=== PATIENT | female | born 1935 | race Caucasian/White ===

== ENCOUNTER 2016-09-14 00:32 | Inpatient (IN) | payer MEDICARE, MEDICAID ==
[~2016-09-14] VITALS: Ht 165.1 cm; Wt 77.1 kg
[2016-09-14] MEDS ORDERED: ASPI-605 PO (00:55)
[2016-09-14] MEDS ORDERED: CA CARBONATE PO (00:59)
[2016-09-14] MEDS ORDERED: PANTOPRAZOLE SODIUM 40 MG VIAL IV ONE (01:00)
[2016-09-14] MEDS ORDERED: ONDANSETRON 4 MG/2 ML VIAL IV ONE (01:00)
[2016-09-14] MEDS ORDERED: MORPHINE SULFATE 2 MG/1 ML DISP.SYRIN IV ONE (01:00)
[2016-09-14] MEDS ORDERED: IV NORMAL SALINE 500 ML BAG IV ONE (01:00)
[2016-09-14] MEDS ORDERED: ESCI5TAB PO (01:03)
[2016-09-14] MEDS ORDERED: FERR325T28 PO (01:05)
[2016-09-14] MEDS ORDERED: GABA-532 PO (01:05)
[2016-09-14] MEDS ORDERED: [UNRECOGNIZED DRUG - CODE] PO (01:11)
[2016-09-14] MEDS ORDERED: MULT-70 PO (01:12)
[2016-09-14] MEDS ORDERED: OMEP20CA10 PO (01:14)
[2016-09-14 01:17] LABS: BASOPHILS # (AUTO) 0.2 K/uL (0.0-0.2); BASOPHILS % (AUTO) 0.6 % (0.0-2.0); HEMATOCRIT 33.6 % (37.0-47.0); HEMOGLOBIN 10.9 g/dL (12.0-16.0); LYMPHOCYTES # (AUTO) 1.3 K/uL (0.8-4.8); MEAN CORPUSCULAR HGB CONC 33 g/dL (32.0-37.0); MEAN CORPUSCULAR VOLUME 82.7 fL (81.0-99.0); MONOCYTES # (AUTO) 0.7 K/uL (0.1-1.30); MONOCYTES % (AUTO) 2.6 % (0.0-11.0); NEUTROPHILS # (AUTO) 24.2 K/uL (1.8-8.9); NEUTROPHILS % (AUTO) 91.8 % (38.5-71.5); PLATELET COUNT (AUTO) 247 K/uL (150-450); RED BLOOD CELL COUNT(AUTO) 4.06 MIL/uL (4.20-5.40); RED CELL DISTRIBUTION WIDTH 13.9 % (11.5-14.5); WHITE BLOOD COUNT (AUTO) 26.4 K/uL (4.0-11.2)
[2016-09-14] MEDS ORDERED: QUET25TA PO (01:19)
[2016-09-14] MEDS ORDERED: TRAZ-144 PO (01:20)
[2016-09-14] MEDS ORDERED: CHOL200025 PO (01:21)
[2016-09-14] MEDS ORDERED: FLUTICASONE 50MCG EA NOSTRIL (01:28)
[2016-09-14] MEDS ORDERED: HYDR-3326 PO (01:29)
[2016-09-14] MEDS ORDERED: PIPERACILLIN SODIUM/TAZOBACTAM 3.375 G in IV DEXTROSE 5% 50 ML IV ONE (01:30)
[2016-09-14 01:31] LABS: TROPONIN I < 0.017 ng/mL (0.00-0.056)
[2016-09-14] MEDS ORDERED: MAPAP PO (01:33)
[2016-09-14] MEDS ORDERED: LOPE2TAB25 PO (01:35)
[2016-09-14 01:36] LABS: CALCIUM 8.9 mg/dL (8.5-10.1); CREATININE 0.8 mg/dL (0.6-1.3); POTASSIUM 3.8 mmol/L (3.5-5.1)
[2016-09-14] MEDS ORDERED: PANTOPRAZOLE SODIUM 40 MG VIAL ONE (01:37)
[2016-09-14] MEDS ORDERED: ANTACID PO (01:37)
[2016-09-14] MEDS ORDERED: ONDANSETRON 4 MG/2 ML VIAL ONE (01:37)
[2016-09-14] MEDS ORDERED: MORPHINE SULFATE 2 MG/1 ML DISP.SYRIN ONE (01:38)
[2016-09-14] MEDS ORDERED: HYDR-548 PO (01:40)
[2016-09-14] MEDS ORDERED: LORA1TAB PO (01:41)
[2016-09-14 01:43] LABS: ALBUMIN 3.2 g/dL (3.4-5.0); BILIRUBIN,DIRECT 0.1 mg/dL (0.0-0.2); BILIRUBIN,TOTAL 0.4 mg/dL (0.2-1.0); TOTAL PROTEIN, SERUM 7.1 g/dL (6.4-8.2)
[2016-09-14] MEDS ORDERED: GUAI118S20 PO (01:46)
[2016-09-14] MEDS ORDERED: TEMA30CA5 PO (01:49)
[2016-09-14] MEDS ORDERED: PIPERACILLIN/TAZOBACTAM/D5W 50 ML IV ONE (01:51)
[2016-09-14] MEDS ORDERED: TRAM50TA2 PO (01:51)
[2016-09-14] MEDS ORDERED: LACTULOSE PO (01:53)
[2016-09-14] MEDS ORDERED: DIPHENOXYLATE PO (01:55)
[2016-09-14] MEDS ORDERED: ATROPINE PO (01:55)
--- NOTE | 2016-09-14 02:16 | NUR ---
Dina fajardo in EDM - 09/14/16 at 0217 by DMITRY Patient discharged to home in stable conditon. Written and verbal after care instructions given. Patient verbalizes understanding of instructions. Ambulated from ER with stable gait. All belongings with patient.
--- NOTE | 2016-09-14 03:28 | NUR ---
Called [facility] for a MD to MD consult.
[2016-09-14] MEDS ORDERED: IV NS 1000 ML 1,000 ML IV ONE ×2 (03:30→05:00)
--- NOTE | 2016-09-14 03:45 | NUR ---
Adriana Johnson Cell phone :
[2016-09-14] MEDS ORDERED: METRONIDAZOLE 500 MG TABLET ONE (03:56)
[2016-09-14] MEDS ORDERED: METRONIDAZOLE 500 MG TABLET PO ONE (04:00)
--- NOTE | 2016-09-14 04:03 | NUR ---
Pt. admitted to Telemetry , under care of Dr. Berger, Dx: Diverticulitis. Belongs List completed.
[2016-09-14 04:20] VITALS: BP 108/45
--- NOTE | 2016-09-14 04:20 | NUR ---
PT WAS BROUGHT IN TO FLOOR VIA WHEELCHAIR. ADMITTED TO TELE UNDER DR. PEREZ. DX: DIVERTICULITIS. INITIATE ADMISSION ASSESSMENTS. WILL CALL FOR ORDERS. BELONGING LISTS REVIEWED.
[2016-09-14] MEDS ORDERED: ACETAMINOPHEN 325 MG TABLET PO PRN (05:00)
[2016-09-14] MEDS: LEVOFLOXACIN 500 MG/D5W 500 MG in PREMIXED 1 EACH IV SCH (05:00)
[2016-09-14] MEDS ORDERED: ENOXAPARIN SODIUM 30 MG/0.3 ML DISP.SYRIN SQ SCH (05:00)
[2016-09-14] MEDS ORDERED: Z GUARD REMEDY PASTE 57 GM TUBE TOP PRN (05:00)
[2016-09-14] MEDS ORDERED: MAGNESIUM HYDROXIDE 30 ML LIQUID UDC PO PRN (05:00)
[2016-09-14] MEDS ORDERED: METRONIDAZOLE 500 MG/NS 100ML 100 ML IV ONE (06:08)
[2016-09-14] MEDS ORDERED: LEVOFLOXACIN 500 MG/D5W 100 ML ONE ×2 (06:08→06:12)
[2016-09-14] MEDS ORDERED: PANTOPRAZOLE SODIUM 40 MG TABLET.DR PO SCH (07:00)
--- NOTE | 2016-09-14 08:59 | NUR ---
STOOL SAMPLE SENT TO LAB
[2016-09-14] MEDS: PANTOPRAZOLE SODIUM 40 MG VIAL IV SCH (09:58)
[2016-09-14 10:19] LABS: BASOPHILS % (AUTO) 0.2 % (0.0-2.0); EOSINOPHILS % (AUTO) 0.2 % (0.0-7.0); HEMATOCRIT 31.5 % (37.0-47.0); HEMOGLOBIN 10.5 g/dL (12.0-16.0); LYMPHOCYTES # (AUTO) 1.8 K/uL (0.8-4.8); LYMPHOCYTES % (AUTO) 7.3 % (20.5-51.5); MEAN CORPUSCULAR HEMOGLOBIN 27.5 uug (27.0-31.0); MEAN CORPUSCULAR HGB CONC 33 g/dL (32.0-37.0); MEAN CORPUSCULAR VOLUME 82.3 fL (81.0-99.0); MONOCYTES # (AUTO) 1.3 K/uL (0.1-1.30); MONOCYTES % (AUTO) 5.4 % (0.0-11.0); NEUTROPHILS % (AUTO) 86.9 % (38.5-71.5); PLATELET COUNT (AUTO) 226 K/uL (150-450); RED BLOOD CELL COUNT(AUTO) 3.83 MIL/uL (4.20-5.40); RED CELL DISTRIBUTION WIDTH 13.7 % (11.5-14.5); WHITE BLOOD COUNT (AUTO) 24.1 K/uL (4.0-11.2)
[2016-09-14 10:55] LABS: ALBUMIN 2.8 g/dL (3.4-5.0); BILIRUBIN,TOTAL 0.4 mg/dL (0.2-1.0); CALCIUM 8.4 mg/dL (8.5-10.1); CREATININE 0.7 mg/dL (0.6-1.3); TOTAL PROTEIN, SERUM 6.7 g/dL (6.4-8.2)
[2016-09-14] MEDS: MORPHINE SULFATE 2 MG/1 ML DISP.SYRIN IV PRN ×3 (10:55→22:28)
[2016-09-14 11:14] LABS: BAND % (MANUAL) 19 % (0-10); LYMPHOCYTES % (MANUAL) 9 % (20-40); MONOCYTES % (MANUAL) 5 % (2-10); NEUTROPHILS % (MANUAL) 67 % (42-75)
[2016-09-14 11:15] LABS: PLATELET ESTIMATE ADEQUATE
[2016-09-14 11:32] VITALS: BP 105/47
--- NOTE | 2016-09-14 11:40 | NUR ---
PT TEMP 100.2, TYLENOL PO ORDERED, HOWEVER PT NPO AT THIS TIME. MATTIE YOUNG NP, AWAITING ORDERS. ICE PACKS APPLIED TO UNDER ARMS IN THE MEAN TIME
--- NOTE | 2016-09-14 11:47 | NUR ---
SPOKE WITH BRYANNA YOUNG ABOUT NEW ORDERS, WILL FOLLOW THROUGH
[2016-09-14 11:50] LABS: *OCCULT BLOOD STOOL POSITIVE (NEGATIVE)
[2016-09-14] MEDS: ACETAMINOPHEN 650 MG SUPP.RECT RC PRN ×2 (11:58→20:18)
[2016-09-14 12:52] LABS: PHOSPHOROUS 2.2 mg/dL (2.5-4.9)
[2016-09-14] MEDS: METRONIDAZOLE 500 MG/NS 100ML 500 MG in PREMIXED 1 EACH IV SCH ×2 (13:43→21:00)
[2016-09-14] MEDS ORDERED: POTASSIUM PHOSPHATE MM 7.5 MMOL in IV DEXTROSE 5% 100 ML IV ONE (14:15)
[2016-09-14 15:19] VITALS: BP 115/46
[2016-09-14 15:36] LABS: *BILIRUBIN,URIN NEGATIVE (NEGATIVE); *BLOOD, URINE 1+ (NEGATIVE); *CLARITY,URINE CLEAR (CLEAR); *COLOR,URINE YELLOW (YELLOW); *KETONES,URINE NEGATIVE (NEGATIVE); *PROTEIN,URINE 1+ (NEGATIVE); *UROBILINOGEN,URINE 0.2 E.U./dl (NORMAL); LEUKOCYTE ESTERASE ,URINE NEGATIVE (NEGATIVE); NITRITE, URINE NEGATIVE (NEGATIVE); PH,URINE 6.5 (5.0-8.0); UGLUCOSE NEGATIVE (NEGATIVE)
[2016-09-14 15:48] LABS: *CREATININE,URINE 95.7 mg/dL (30-125)
[2016-09-14 15:55] LABS: SQUAMOUS EPITHELIAL CELL,UR FEW /HPF (NONE SEEN)
[2016-09-14] MEDS: ONDANSETRON 4 MG/2 ML VIAL IV PRN (16:01)
--- NOTE | 2016-09-14 18:31 | NUR ---
PT RESTING IN BED, NO SIGNS OF ACUTE DISTRESS. REMAINED NPO THROUGH SHIFT AND NO TEMP AT THIS TIME. IV INTACT AND PATENT AND INFUSING WELL. ALL SAFETY AND COMFORT MEASURES MAINTAINED THROUGHOUT SHIFT, CALL LIGHT IN REACH
--- NOTE | 2016-09-14 19:15 | NUR ---
Received report from ENEDINA Mistry.
--- NOTE | 2016-09-14 19:45 | NUR ---
Seen patient, accompanied to restroom. Pt reported that her BM is getting better/more formed now.AOX3, very pleasant. Pt reported abdominal pain intermittently. Denies n/v. Pt is independent goes to restroom with minimal supervision. Still encourages to call nurse before goes to bathroom.
[2016-09-14 20:00] VITALS: BP 116/52
--- NOTE | 2016-09-14 20:00 | NUR ---
Pt c/o of headache and requested Tylenol suppository.Given as requested via rectal.
--- NOTE | 2016-09-14 21:00 | NUR ---
Pt was in extreme abdominal pain and requested for pain medicine. Her morphine was not due , given [place] 1 tab/po with sips of water, given as prescribed.Pain level reported was 10/10.
[2016-09-14] MEDS: HYDROCODONE/APAP 5-325MG TABLET PO PRN (21:10)
[2016-09-14] MEDS: ZOLPIDEM 5 MG TABLET PO PRN (22:29)
--- NOTE | 2016-09-14 23:00 | NUR ---
Pain reassessed and pt reported that it helped a little bit after taking [place], however requested for stronger pain medicine, so also she can sleep. On top of pain medicine, she requested for sleeping pills. Morphine given as requested 2mg/IVP. Accompanied again to restroom for urination. Continue on NS at 75mls/hr.
[2016-09-15] VITALS: BP 122/61
--- NOTE | 2016-09-15 01:00 | NUR ---
Pt resting comfortably, easily awakened due to IV pumps alarms, but was able to go back right away.Accompanied to restroom.Back to bed and made sure call lights within reach.
--- NOTE | 2016-09-15 02:30 | NUR ---
[place] was given for abdominal pain, pt stated 03/29. Morphine is not due, offerred po pain meds.
[2016-09-15] MEDS: HYDROCODONE/APAP 5-325MG TABLET PO PRN ×2 (02:42→10:59)
[2016-09-15] MEDS: MORPHINE SULFATE 2 MG/1 ML DISP.SYRIN IV PRN ×5 (03:45→21:27)
[2016-09-15 04:11] VITALS: BP 128/52
--- NOTE | 2016-09-15 05:00 | NUR ---
Hanged Levofloxacin IV abx to run at 100mls/hr.
[2016-09-15] MEDS: LEVOFLOXACIN 500 MG/D5W 500 MG in PREMIXED 1 EACH IV SCH (05:01)
[2016-09-15] MEDS: METRONIDAZOLE 500 MG/NS 100ML 500 MG in PREMIXED 1 EACH IV SCH ×3 (05:50→22:57)
--- NOTE | 2016-09-15 06:00 | NUR ---
Hanged Metronidazole IVPB rate of 200mls/hr. Pt urinated multiple times. NO diarrhea noted.
[2016-09-15 07:00] LABS: BASOPHILS % (AUTO) 0.2 % (0.0-2.0); EOSINOPHILS # (AUTO) 0.4 K/uL (0.0-0.7); EOSINOPHILS % (AUTO) 2.2 % (0.0-7.0); HEMATOCRIT 29.7 % (37.0-47.0); HEMOGLOBIN 9.5 g/dL (12.0-16.0); LYMPHOCYTES # (AUTO) 2.5 K/uL (0.8-4.8); LYMPHOCYTES % (AUTO) 14.8 % (20.5-51.5); MEAN CORPUSCULAR HEMOGLOBIN 26.9 uug (27.0-31.0); MEAN CORPUSCULAR HGB CONC 32 g/dL (32.0-37.0); MEAN CORPUSCULAR VOLUME 83.8 fL (81.0-99.0); MONOCYTES % (AUTO) 5.6 % (0.0-11.0); NEUTROPHILS # (AUTO) 13.1 K/uL (1.8-8.9); NEUTROPHILS % (AUTO) 77.2 % (38.5-71.5); PLATELET COUNT (AUTO) 212 K/uL (150-450); RED BLOOD CELL COUNT(AUTO) 3.54 MIL/uL (4.20-5.40); RED CELL DISTRIBUTION WIDTH 14.1 % (11.5-14.5)
--- NOTE | 2016-09-15 07:10 | NUR ---
Report to ENEDINA Mason. Rounds made, seen patient physically on her beds, sound asleep, breathing normally.
[2016-09-15 08:16] LABS: ALBUMIN 2.4 g/dL (3.4-5.0); BILIRUBIN,TOTAL 0.2 mg/dL (0.2-1.0); CREATININE 0.6 mg/dL (0.6-1.3); MAGNESIUM 1.9 mg/dL (1.8-2.4); PHOSPHOROUS 1.8 mg/dL (2.5-4.9); POTASSIUM 3.6 mmol/L (3.5-5.1); TOTAL PROTEIN, SERUM 5.9 g/dL (6.4-8.2)
[2016-09-15] MEDS: PANTOPRAZOLE SODIUM 40 MG VIAL IV SCH (08:48)
[2016-09-15] MEDS ORDERED: ENOXAPARIN SODIUM 30 MG/0.3 ML DISP.SYRIN SQ SCH (09:00)
[2016-09-15] MEDS: ACETAMINOPHEN 650 MG SUPP.RECT RC PRN (10:59)
[2016-09-15 11:30] VITALS: BP 136/56
[2016-09-15 11:48] LABS: BAND % (MANUAL) 6 % (0-10); EOSINOPHILS % (MANUAL) 2 % (0-8); LYMPHOCYTES % (MANUAL) 20 % (20-40); MONOCYTES % (MANUAL) 4 % (2-10); NEUTROPHILS % (MANUAL) 68 % (42-75)
[2016-09-15 11:49] LABS: HYPOCHROMASIA 1+; PLATELET ESTIMATE ADEQUATE
[2016-09-15 15:19] VITALS: BP 139/61
[2016-09-15] MEDS ORDERED: LORAZEPAM 1 MG TABLET PO PRN (16:30)
[2016-09-15] MEDS: GABAPENTIN 100 MG CAPSULE PO SCH (16:44)
[2016-09-15] MEDS ORDERED: SODIUM PHOSPHATE MM 15 MM in IV DEXTROSE 5% 250 ML IV ONE (17:00)
--- NOTE | 2016-09-15 19:30 | NUR ---
PATIENT ALERT, NO DISTRESS NOTED. ASSISTED WITH TOILETING NEEDS. CALL LIGHT WITHIN REACH, BED IN LOW POSITION. WILL CONTINUE TO MONITOR.
[2016-09-15 20:00] VITALS: BP 149/74
[2016-09-15] MEDS: ZOLPIDEM 5 MG TABLET PO PRN (23:21)
[2016-09-16] MEDS: MORPHINE SULFATE 2 MG/1 ML DISP.SYRIN IV PRN ×4 (01:58→22:09)
[2016-09-16] MEDS: ONDANSETRON 4 MG/2 ML VIAL IV PRN (03:06)
[2016-09-16 04:30] VITALS: BP 151/72
[2016-09-16] MEDS: LEVOFLOXACIN 500 MG/D5W 500 MG in PREMIXED 1 EACH IV SCH (05:26)
--- NOTE | 2016-09-16 06:00 | NUR ---
PATIENT SLEPT INTERMITTENTLY, NO DISRESS NOTED. PT C/O OF GENERALIZED PAIN. PAIN MEDS ADMINISTERED ORDERED. CALL LIGHT WITHIN REACH. WILL CONTINUE TO MONITOR.
[2016-09-16] MEDS: METRONIDAZOLE 500 MG/NS 100ML 500 MG in PREMIXED 1 EACH IV SCH ×3 (06:22→21:05)
[2016-09-16] MEDS: HYDROCODONE/APAP 5-325MG TABLET PO PRN ×2 (06:50→12:34)
[2016-09-16 07:29] LABS: CALCIUM 8.5 mg/dL (8.5-10.1); PHOSPHOROUS 2.7 mg/dL (2.5-4.9); POTASSIUM 3.4 mmol/L (3.5-5.1)
[2016-09-16 07:32] LABS: CREATININE 0.5 mg/dL (0.6-1.3)
[2016-09-16] MEDS: PANTOPRAZOLE SODIUM 40 MG VIAL IV SCH (07:51)
[2016-09-16] MEDS: GABAPENTIN 100 MG CAPSULE PO SCH ×3 (07:51→18:06)
[2016-09-16 11:19] VITALS: BP 143/74
[2016-09-16] MEDS ORDERED: POTASSIUM CHLORIDE 20 MEQ TAB.PRT.SR PO ONE (12:00)
[2016-09-16 15:42] VITALS: BP 136/67
[2016-09-16 19:00] VITALS: BP 152/70
--- NOTE | 2016-09-16 19:45 | NUR ---
PATIENT ALERT ORIENTED, ON PAIN MANAGEMENT, PAIN MEDS EFFECTIVE AT THIS TIME. NO SOB NO CHEST PAIN NOTED, ASSISTED TO TOILET FOR BLADDER ELIMINATIONS. NO DISTRESS.
[2016-09-17 04:00] VITALS: BP 143/69
[2016-09-17] MEDS: MORPHINE SULFATE 2 MG/1 ML DISP.SYRIN IV PRN ×3 (05:36→21:39)
[2016-09-17] MEDS: LEVOFLOXACIN 500 MG/D5W 500 MG in PREMIXED 1 EACH IV SCH (05:36)
--- NOTE | 2016-09-17 06:32 | NUR ---
PATIENT SLEEP INTERMITENTLY, ABDOMEN STILL BIG, NO BM YET ON THIS SHIFT, GIVEN MOM NOT EFFECTIVE, NO SOB, NO CHEST PAIN. CONT TO MONITOR.
[2016-09-17] MEDS: METRONIDAZOLE 500 MG/NS 100ML 500 MG in PREMIXED 1 EACH IV SCH ×3 (07:01→21:21)
[2016-09-17] MEDS: HYDROCODONE/APAP 5-325MG TABLET PO PRN (07:48)
[2016-09-17] MEDS: GABAPENTIN 100 MG CAPSULE PO SCH ×3 (07:48→16:21)
--- NOTE | 2016-09-17 07:50 | NUR ---
awake alert oriented, c/o abdominal pain- medicated with [place] po i tab as ordered PRN, denies of nausea/vomiting, kept NPO except meds, explained plan of care- verbalized understanding, call lite within reach.
[2016-09-17 08:11] LABS: BASOPHILS # (AUTO) 0.1 K/uL (0.0-0.2); EOSINOPHILS # (AUTO) 0.3 K/uL (0.0-0.7); EOSINOPHILS % (AUTO) 2.2 % (0.0-7.0); HEMATOCRIT 35.3 % (37.0-47.0); HEMOGLOBIN 11.2 g/dL (12.0-16.0); LYMPHOCYTES # (AUTO) 2.4 K/uL (0.8-4.8); LYMPHOCYTES % (AUTO) 19.9 % (20.5-51.5); MEAN CORPUSCULAR HEMOGLOBIN 26.3 uug (27.0-31.0); MEAN CORPUSCULAR HGB CONC 32 g/dL (32.0-37.0); MEAN CORPUSCULAR VOLUME 82.4 fL (81.0-99.0); MONOCYTES # (AUTO) 0.5 K/uL (0.1-1.30); MONOCYTES % (AUTO) 4.3 % (0.0-11.0); NEUTROPHILS # (AUTO) 8.7 K/uL (1.8-8.9); NEUTROPHILS % (AUTO) 72.6 % (38.5-71.5); PLATELET COUNT (AUTO) 287 K/uL (150-450); RED BLOOD CELL COUNT(AUTO) 4.28 MIL/uL (4.20-5.40); RED CELL DISTRIBUTION WIDTH 13.6 % (11.5-14.5)
[2016-09-17] MEDS: PANTOPRAZOLE SODIUM 40 MG VIAL IV SCH (08:26)
[2016-09-17 08:51] LABS: ALBUMIN 2.8 g/dL (3.4-5.0); BILIRUBIN,TOTAL 0.3 mg/dL (0.2-1.0); CALCIUM 8.4 mg/dL (8.5-10.1); CREATININE 0.6 mg/dL (0.6-1.3); MAGNESIUM 1.9 mg/dL (1.8-2.4); PHOSPHOROUS 2.5 mg/dL (2.5-4.9); POTASSIUM 3.6 mmol/L (3.5-5.1); TOTAL PROTEIN, SERUM 7.4 g/dL (6.4-8.2)
[2016-09-17] MEDS ORDERED: CHOLECALCIFEROL 2000 UNIT PO SCH (09:00)
[2016-09-17] MEDS ORDERED: GLUCOSAM PO SCH (09:00)
[2016-09-17] MEDS ORDERED: LACTULOSE 20 G/30 ML LIQUID UDC PO PRN (09:00)
[2016-09-17] MEDS ORDERED: MAPAP PO PRN (09:00)
[2016-09-17] MEDS ORDERED: Medication Not On Formulary EA (Loperamide Hcl (Loperamide) 2 MG) PO SCH (09:00)
[2016-09-17] MEDS ORDERED: CHONDROIT PO SCH (09:00)
[2016-09-17] MEDS ORDERED: TRAMADOL HCL 50 MG TABLET PO PRN (09:00)
[2016-09-17] MEDS ORDERED: LOPERAMIDE HCL 2 MG CAPSULE PO PRN (09:00)
[2016-09-17] MEDS ORDERED: LACTULOSE PO PRN (09:00)
[2016-09-17] MEDS ORDERED: Medication Not On Formulary EA (Escitalopram Oxalate (Lexapro) 5 MG) PO SCH (09:00)
[2016-09-17] MEDS ORDERED: TEMAZEPAM 30 MG CAPSULE PO PRN (09:00)
[2016-09-17] MEDS ORDERED: ACETAMINOPHEN 325 MG TABLET PO PRN (09:00)
[2016-09-17] MEDS ORDERED: CALCIUM CARBONATE PO SCH (09:00)
[2016-09-17] MEDS ORDERED: Medication Not On Formulary EA (Multivitamins (Multivitamin) 1 EACH) PO SCH (09:00)
[2016-09-17] MEDS ORDERED: HYDROCODONE/APAP 5-325MG TABLET PO PRN (09:00)
[2016-09-17] MEDS ORDERED: [UNRECOGNIZED DRUG - OTHER] PO SCH (09:00)
[2016-09-17] MEDS ORDERED: Medication Not On Formulary EA (Omeprazole 20 MG) PO SCH (09:00)
[2016-09-17] MEDS ORDERED: VIT D3 PO SCH (09:00)
[2016-09-17] MEDS ORDERED: MSM PO SCH (09:00)
[2016-09-17] MEDS ORDERED: DIPHENOXYLATE HCL/ATROP SULF TABLET PO PRN (09:00)
[2016-09-17] MEDS ORDERED: ANTACID PO PRN (09:00)
[2016-09-17] MEDS ORDERED: DIPHENOXYLATE PO PRN (09:00)
[2016-09-17] MEDS ORDERED: ATROPINE PO PRN (09:00)
--- NOTE | 2016-09-17 09:00 | NUR ---
Dr Hernandez here-with orderes- to start regular diet- pt informed
[2016-09-17] MEDS: ASPIRIN EC 81 MG TABLET.DR PO SCH (09:53)
[2016-09-17] MEDS: ESCITALOPRAM OXALATE 10 MG TABLET PO SCH (09:53)
[2016-09-17] MEDS: MULTIVITAMINS,THERAPEUTIC TABLET PO SCH (09:54)
[2016-09-17] MEDS: CHOLECALCIFEROL 1,000 UNIT TABLET PO SCH (09:55)
[2016-09-17] MEDS: FERROUS SULFATE 325 MG TABEC PO SCH (09:55)
[2016-09-17] MEDS: CALCIUM CARBONATE 500 MG TAB.CHEW PO SCH ×2 (09:55→21:12)
[2016-09-17] MEDS ORDERED: BENZOCAINE/MENTH/CETYLPYRD LOZENGE MM PRN (10:00)
--- NOTE | 2016-09-17 10:00 | NUR ---
tolerated diet fairly, no nausea, ambulates to BR with help- no BM, voiding qs
[2016-09-17 11:26] VITALS: BP 132/67
--- NOTE | 2016-09-17 16:00 | NUR ---
Seen by Dr Zimmerman (GI) with orders- to have CT abdomen width contrast- pt informed and in agreement, Kept NPO for procedure
[2016-09-17 16:03] VITALS: BP 145/75
[2016-09-17] MEDS: HYDROCODONE/APAP 10-325 MG TABLET PO PRN (16:21)
--- NOTE | 2016-09-17 17:30 | NUR ---
oral contrast given by tech and pt took it as directed
[2016-09-17] MEDS ORDERED: BARIUM SULFATE 450 ML ORAL.SUSP ONE (17:36)
--- NOTE | 2016-09-17 18:35 | NUR ---
awaiting for test to be done, denies of nausea, resting in bed, no distress noted, all needs attended and met, call lite within reach
--- NOTE | 2016-09-17 19:10 | NUR ---
PATIENT IN BED RESTING, ON PAIN MANAGEMENT, NO SOB, NO CHEST PAIN NOTED, CALL LIGHT WITHIN REACH. CONT IV ABX FOR DIVERTICULITIS WITH NO ADVERSE SIDE EFFECTS. CONT TO MONITOR.
[2016-09-17] MEDS ORDERED: IOHEXOL 300MG/ML 100 ML INFUS..BTL ONE (20:19)
[2016-09-17] MEDS ORDERED: NORMAL SALINE FLUSH 10 ML DISP.SYRIN ONE (20:19)
[2016-09-17] MEDS ORDERED: IV NORMAL SALINE 250 ML IV ONE (20:20)
[2016-09-17] MEDS ORDERED: TRAZODONE 50 MG TABLET PO SCH (21:00)
[2016-09-17] MEDS ORDERED: QUETIAPINE FUMARATE 25 MG TABLET PO SCH (21:00)
[2016-09-17 21:27] VITALS: BP 145/65
[2016-09-18] MEDS: MORPHINE SULFATE 2 MG/1 ML DISP.SYRIN IV PRN ×2 (02:38→06:53)
--- NOTE | 2016-09-18 04:48 | NUR ---
PATIENT WAS GIVEN LACTULOSE DUE TO NO BM FOR FEW DAYS, PATIENT MOVED HER BOWEL FROM MEDIUM TO LARGE FORMED BM, ALSO WITH LARGE AMOUNT OF GAS CAME OUT.ABDOMEN IS SOFTER NOW, PATIENT EXPRESS GLADNESS, HELPS EASE ABDOMEN PAIN. CONT TO MONITOR.
[2016-09-18] MEDS: LEVOFLOXACIN 500 MG/D5W 500 MG in PREMIXED 1 EACH IV SCH (05:16)
[2016-09-18 05:39] VITALS: BP 106/50
[2016-09-18] MEDS: METRONIDAZOLE 500 MG/NS 100ML 500 MG in PREMIXED 1 EACH IV SCH ×2 (06:04→13:18)
[2016-09-18 06:52] LABS: BASOPHILS % (AUTO) 1.1 % (0.0-2.0); EOSINOPHILS % (AUTO) 2.1 % (0.0-7.0); HEMATOCRIT 34.5 % (37.0-47.0); LYMPHOCYTES % (AUTO) 20.3 % (20.5-51.5); MEAN CORPUSCULAR HEMOGLOBIN 26.6 uug (27.0-31.0); MEAN CORPUSCULAR HGB CONC 32 g/dL (32.0-37.0); MEAN CORPUSCULAR VOLUME 83.5 fL (81.0-99.0); MONOCYTES % (AUTO) 7.4 % (0.0-11.0); NEUTROPHILS % (AUTO) 69.1 % (38.5-71.5); PLATELET COUNT (AUTO) 286 K/uL (150-450); RED BLOOD CELL COUNT(AUTO) 4.14 MIL/uL (4.20-5.40); RED CELL DISTRIBUTION WIDTH 13.6 % (11.5-14.5); WHITE BLOOD COUNT (AUTO) 14.2 K/uL (4.0-11.2)
[2016-09-18 06:53] LABS: BASOPHILS # (AUTO) 0.2 K/uL (0.0-0.2); EOSINOPHILS # (AUTO) 0.3 K/uL (0.0-0.7); LYMPHOCYTES # (AUTO) 2.9 K/uL (0.8-4.8); MONOCYTES # (AUTO) 1.1 K/uL (0.1-1.30); NEUTROPHILS # (AUTO) 9.7 K/uL (1.8-8.9)
[2016-09-18] MEDS ORDERED: PANTOPRAZOLE SODIUM 40 MG TABLET.DR PO SCH (07:00)
[2016-09-18 07:28] LABS: ALBUMIN 2.8 g/dL (3.4-5.0); BILIRUBIN,TOTAL 0.3 mg/dL (0.2-1.0); CALCIUM 8.5 mg/dL (8.5-10.1); CREATININE 0.7 mg/dL (0.6-1.3); MAGNESIUM 1.9 mg/dL (1.8-2.4); PHOSPHOROUS 2.8 mg/dL (2.5-4.9); POTASSIUM 3.3 mmol/L (3.5-5.1); TOTAL PROTEIN, SERUM 6.7 g/dL (6.4-8.2)
--- NOTE | 2016-09-18 08:00 | NUR ---
awake alert and oriented, denies of nausea / vomiting, breakfast given- appetite poor, states had several BM on second shift supervisor, safety measures maintained, call lite within reach
[2016-09-18] MEDS: MULTIVITAMINS,THERAPEUTIC TABLET PO SCH (08:16)
[2016-09-18] MEDS: CALCIUM CARBONATE 500 MG TAB.CHEW PO SCH (08:16)
[2016-09-18] MEDS: GABAPENTIN 100 MG CAPSULE PO SCH ×2 (08:16→12:28)
[2016-09-18] MEDS: FERROUS SULFATE 325 MG TABEC PO SCH (08:16)
[2016-09-18] MEDS: ASPIRIN EC 81 MG TABLET.DR PO SCH (08:16)
[2016-09-18] MEDS: CHOLECALCIFEROL 1,000 UNIT TABLET PO SCH (08:16)
[2016-09-18] MEDS: ESCITALOPRAM OXALATE 10 MG TABLET PO SCH (08:16)
--- NOTE | 2016-09-18 09:30 | NUR ---
daughter here, ambulated in the hallway with walker- slight shortness of breath noted while ambulating- took sat- 97 %- felt fine after resting and sitting
--- NOTE | 2016-09-18 10:00 | NUR ---
c/o abdominal pain 12/27- medicated width Corinne 10/325 given as ordered PRN, up to BR and voiding qs- no BM this time
[2016-09-18] MEDS: HYDROCODONE/APAP 10-325 MG TABLET PO PRN (10:02)
[2016-09-18 10:24] LABS: BAND % (MANUAL) 4 % (0-10); BASOPHILS % (MANUAL) 2 % (0-2); LYMPHOCYTES % (MANUAL) 23 % (20-40); METAMYELOCYTES % 1 % (0-1); MONOCYTES % (MANUAL) 7 % (2-10); NEUTROPHILS % (MANUAL) 63 % (42-75)
[2016-09-18 10:25] LABS: PLATELET ESTIMATE ADEQUATE
[2016-09-18 11:44] VITALS: BP 105/56
[2016-09-18] MEDS ORDERED: METR500P3 IV (11:48)
[2016-09-18] MEDS ORDERED: LEVO500T15 PO (11:48)
--- NOTE | 2016-09-18 12:00 | NUR ---
Dr Hernandez here- to be d/cd to SNF- case management aware
[2016-09-18] MEDS ORDERED: POTASSIUM CHLORIDE 20 MEQ TAB.PRT.SR PO ONE (12:30)
--- NOTE | 2016-09-18 14:00 | NUR ---
Pt going to [facility] and pt in agreement
--- NOTE | 2016-09-18 14:30 | NUR ---
report given to Amanda at [facility], saline lock on the rigkht hand intact and patent- no swelling/redness noted on site-will leave it in for IV Flagyl at [facility], called Elizabeth ( daughter ) of p/up time by ambulance 1529
--- NOTE | 2016-09-18 15:25 | NUR ---
Discharge Plan; Once medically cleared patient will be discharged to [[facility] [address] , [place] [address]]. Angeli confirmed the patients admission. Patient will be transported via ambulance. Spoke with Elizabeth [daughter] and patient who are aware and agreeable with discharge plan.
--- NOTE | 2016-09-18 15:44 | NUR ---
ambulance here- report given- taken per stretcher in stable condition with all belongings
== END 2016-09-18 15:45 | DRG 872 ==
LOC: ER 00:38 → TELE 04:07 → MED 09-15 19:30
PROVIDERS: ADMIT Internal Medicine; ATTEND Internal Medicine
DX: A41.9 Sepsis, unspecified organism (principal); E87.1 Hypo-osmolality and hyponatremia; E44.0 Moderate protein-calorie malnutrition; K56.7 Ileus, unspecified; K57.32 Diverticulitis of large intestine without perforation or abscess without bleeding; I10 Essential (primary) hypertension; F03.90 Unspecified dementia, unspecified severity, without behavioral disturbance, psychotic disturbance, mood disturbance, and anxiety; D64.9 Anemia, unspecified; E83.39 Other disorders of phosphorus metabolism; E86.1 Hypovolemia; F32.9 Major depressive disorder, single episode, unspecified; G62.9 Polyneuropathy, unspecified; Z90.49 Acquired absence of other specified parts of digestive tract; Z90.710 Acquired absence of both cervix and uterus; K59.00 Constipation, unspecified; G89.4 Chronic pain syndrome; Z86.010 Personal history of colon polyps; Z68.28 Body mass index [BMI] 28.0-28.9, adult; E11.9 Type 2 diabetes mellitus without complications
CPT/HCPCS: 36415; 70030-TC; 71010; 74000; 82533; 83605; 83690; 83735; 84100; 84300; 84443; 85025; 85730; 86625; 87040; 87046; 87086; 87177; 89055; 93005; 97001; 97110; 97116; 97530; A4663; C9113; J1956; J2270; J2405; J2543; J3490; J7030; J7050; J7060; Q9951; Q9967

== ENCOUNTER 2017-07-12 14:26 | Inpatient (IN) | payer MEDICARE, MEDICAID ==
[~2017-07-12] VITALS: Ht 162.6 cm; Wt 64.4 kg
[~2017-07-12 14:26] MED LIST: ANTACID PO; ASPI-605 PO; ATROPINE PO; CA CARBONATE PO; CHOL200025 PO; DIPHENOXYLATE PO; ESCI5TAB PO; FERR325T28 PO; GABA-532 PO; HYDR-3326 PO; HYDR-548 PO; LACTULOSE PO; LEVO500T2 PO; LOPE2TAB25 PO; LORA1TAB PO; MAPAP PO; METR500P3 IV; MULT1TAB73 PO; OMEP20CA10 PO; QUET25TA PO; TEMA30CA5 PO; TRAM50TA2 PO; TRAZ-144 PO; [UNRECOGNIZED DRUG - CODE] PO
[2017-07-12 15:19] LABS: CARBON DIOXIDE 24 mmol/L (21-32); CHLORIDE 99 mmol/L (98-107); CREATININE 0.8 mg/dL (0.6-1.3); GLUCOSE 126 mg/dL (74-106); POTASSIUM 3.8 mmol/L (3.5-5.1); UREA NITROGEN, BLOOD 15 mg/dL (7-18)
[2017-07-12 15:20] LABS: BASOPHILS % (AUTO) 0.4 % (0.0-2.0); EOSINOPHILS % (AUTO) 0.3 % (0.0-7.0); HEMATOCRIT 36.8 % (31.2-41.9); HEMOGLOBIN 11.9 g/dL (10.9-14.3); LYMPHOCYTES # (AUTO) 2.1 K/uL (20.0-40.0); LYMPHOCYTES % (AUTO) 17.4 % (20.5-51.5); MEAN CORPUSCULAR HEMOGLOBIN 26.7 uug (24.7-32.8); MEAN CORPUSCULAR HGB CONC 32 g/dL (32.3-35.6); MEAN CORPUSCULAR VOLUME 82.6 fL (75.5-95.3); MONOCYTES # (AUTO) 0.7 K/uL (2.0-10.0); MONOCYTES % (AUTO) 5.5 % (0.0-11.0); NEUTROPHILS # (AUTO) 9.2 K/uL (1.8-8.9); NEUTROPHILS % (AUTO) 76.4 % (38.5-71.5); PLATELET COUNT (AUTO) 325 K/uL (179-408); RED BLOOD CELL COUNT(AUTO) 4.45 MIL/uL (3.63-4.92); WHITE BLOOD COUNT (AUTO) 12.1 K/uL (3.8-11.8)
[2017-07-12 15:25] LABS: ALANINE AMINOTRANSFERASE 23 U/L (14-59); ALKALINE PHOSPHATASE 79 U/L (50-136); ASPARTATE AMINOTRANSFERASE 29 U/L (15-37); BILIRUBIN,DIRECT 0.2 mg/dL (0.0-0.2); BILIRUBIN,TOTAL 0.5 mg/dL (0.2-1.0); TOTAL PROTEIN, SERUM 8.7 g/dL (6.4-8.2)
[2017-07-12 15:28] LABS: ETHANOL < 3 MG/DL (0-0)
[2017-07-12 15:28] LABS: *BLOOD, URINE 2+ (NEGATIVE); *CLARITY,URINE CLEAR (CLEAR); *COLOR,URINE YELLOW (YELLOW); *KETONES,URINE 3+ (NEGATIVE); *PROTEIN,URINE 1+ (NEGATIVE); *UROBILINOGEN,URINE 0.2 E.U./dl (NORMAL); LEUKOCYTE ESTERASE ,URINE 2+ (NEGATIVE); NITRITE, URINE NEGATIVE (NEGATIVE); PH,URINE 6.5 (5.0-8.0); UGLUCOSE NEGATIVE (NEGATIVE)
[2017-07-12 15:30] LABS: ACETAMINOPHEN < 2.0 ug/mL (10-30)
[2017-07-12 15:43] LABS: *AMPHETAMINE, URINE NEGATIVE (NEGATIVE); *BARBITURATE, URINE NEGATIVE (NEGATIVE); *BILIRUBIN,URIN 1+ (NEGATIVE); *CANNABINOID, URINE NEGATIVE (NEGATIVE); *COCCAINE, URINE NEGATIVE (NEGATIVE); *OPIATE, URINE POSITIVE (NEGATIVE); *PHENCYCLIDINE SCREEN,URINE NEGATIVE (NEGATIVE)
[2017-07-12 15:47] LABS: BACTERIA,URINE FEW /HPF (NONE SEEN); RBC,URINE 0-3 /HPF (0-3); SQUAMOUS EPITHELIAL CELL,UR FEW /HPF (NONE SEEN)
[2017-07-12] MEDS ORDERED: CALC500T3 PO (15:53)
[2017-07-12] MEDS ORDERED: OMEP40CA37 PO (15:53)
[2017-07-12] MEDS ORDERED: LOPE2CAP PO (15:53)
[2017-07-12] MEDS ORDERED: LACT10SO PO (15:53)
[2017-07-12] MEDS ORDERED: ACET-2067 PO (15:53)
[2017-07-12] MEDS ORDERED: TEMA30CA PO (15:53)
[2017-07-12] MEDS ORDERED: HYDR-3980 PO (15:53)
[2017-07-12] MEDS ORDERED: ASPI-605 PO (15:53)
[2017-07-12] MEDS ORDERED: MULT1TAB73 PO (15:53)
[2017-07-12] MEDS ORDERED: FLUT16SP NS (15:53)
[2017-07-12] MEDS ORDERED: GABA-532 PO (15:53)
[2017-07-12] MEDS ORDERED: ASCO-340 PO (15:53)
[2017-07-12] MEDS ORDERED: QUET25TA PO (15:53)
[2017-07-12] MEDS ORDERED: LORA1TAB PO (15:53)
[2017-07-12] MEDS ORDERED: TRAZ-144 PO (15:53)
[2017-07-12] MEDS ORDERED: TRAM50TA2 PO (15:53)
[2017-07-12] MEDS ORDERED: CYCL5TAB PO (15:53)
[2017-07-12] MEDS ORDERED: ESCI5TAB PO (15:53)
[2017-07-12] MEDS ORDERED: DOCU-106 PO (15:53)
[2017-07-12] MEDS ORDERED: DIPH1TAB PO (15:53)
[2017-07-12] MEDS ORDERED: MAG30ORA PO (15:53)
[2017-07-12] MEDS ORDERED: CHOL200026 PO (15:53)
--- NOTE | 2017-07-12 17:31 | NUR ---
PT WALKING TO BATHROOM MULTIPLE TIME WITH ASSISSTANCE.
[2017-07-12 20:00] VITALS: BP 136/52
--- NOTE | 2017-07-12 20:03 | NUR ---
Pt. admitted to [facility], under care of Dr. Stark Belongs List completed
[2017-07-12] MEDS ORDERED: ZOLPIDEM 5 MG TABLET PO PRN (20:30)
[2017-07-12] MEDS ORDERED: MAG HYDROX/AL HYDROX/SIMETH 30 ML LIQUID UDC PO PRN ×2 (20:30→23:45)
[2017-07-12] MEDS ORDERED: MAGNESIUM HYDROXIDE 30 ML LIQUID UDC PO PRN (20:30)
--- NOTE | 2017-07-12 22:00 | NUR ---
received to care, from the emergency room, on a 72 hour hold, a transfer from [facility]. according to the hold, she was refusing her medications, not sleeping, and wandering into other residents room, and difficult to redirect, or manage, at her facility. upon arrival in the emergency room, she continued to wander in and out of patient care areas, attempting to interfere with patient care. upon arrival at 1999, she was cooperative, but appeared disorganized. after being admitted, she was oriented to the unit, and assisted to her bed, after eating a snack. as of 2199, she remains awake, and restless. intrusive with peers and staff. requiring frequent redirection. currently up in earnestine chair, at nurses station, after disrupting her room mate, and even after being moved to a different room, where she disrupted that person, also. monitored closely for safety. will continue to monitor closely.
--- NOTE | 2017-07-12 23:33 | NUR ---
remains awake, and restless. remains up in the earnestine chair, for safety. PRN ambien, given for insomnia. will continue to monitor closely.
[2017-07-12] MEDS ORDERED: Medication Not On Formulary EA (Cyclobenzaprine Hcl 5 MG) PO PRN (23:45)
[2017-07-12] MEDS ORDERED: LOPERAMIDE HCL 2 MG CAPSULE PO PRN (23:45)
[2017-07-12] MEDS ORDERED: MIRALAX 17 GM POWD.PACK PO PRN (23:45)
[2017-07-12] MEDS ORDERED: HYDROCODONE/APAP 10-325 MG TABLET PO PRN (23:45)
--- NOTE | 2017-07-13 00:15 | NUR ---
appears to be asleep. no distress noted.
[2017-07-13] MEDS: ACETAMINOPHEN 325 MG TABLET PO PRN (03:08)
[2017-07-13] MEDS: LORAZEPAM 0.5 MG TABLET PO PRN ×2 (03:53→23:07)
--- NOTE | 2017-07-13 03:53 | NUR ---
pt has been increasingly anxious, over the past hour. has been assisted to the bathroom times, in that period, c/o increased urgency to void. each time, she was unable to go, even after being given water. , earlier, she c/o bilateral leg cramps, which seemed to resolve, after taking PRN tylenol. as of 352, she remains anxious and difficult to redirect, so PRN ativan was given at this time. she is currently up in the earnestine chair, being monitored by staff. Addendum: 07/13/17 at 0402 by BOYD BISHOP LVN CORRECTION/ has been assisted to the bathroom 4 times, in that period.
--- NOTE | 2017-07-13 06:00 | NUR ---
SLEPT 2.5 HOURS. REFUSED SHOWER. APPEARS CALMER, NOW.
[2017-07-13] MEDS ORDERED: PANTOPRAZOLE SODIUM 40 MG TABLET.DR PO SCH (07:00)
[2017-07-13 08:00] VITALS: BP 132/64
[2017-07-13 08:47] LABS: BASOPHILS # (AUTO) 0.1 K/uL (0.0-8.0); BASOPHILS % (AUTO) 0.5 % (0.0-2.0); EOSINOPHILS # (AUTO) 0.1 K/uL (0.0-0.7); EOSINOPHILS % (AUTO) 0.7 % (0.0-7.0); HEMATOCRIT 34.2 % (31.2-41.9); HEMOGLOBIN 11.1 g/dL (10.9-14.3); LYMPHOCYTES # (AUTO) 2.9 K/uL (20.0-40.0); LYMPHOCYTES % (AUTO) 24.8 % (20.5-51.5); MEAN CORPUSCULAR HEMOGLOBIN 26.9 uug (24.7-32.8); MEAN CORPUSCULAR HGB CONC 32 g/dL (32.3-35.6); MEAN CORPUSCULAR VOLUME 83.1 fL (75.5-95.3); MONOCYTES % (AUTO) 8.4 % (0.0-11.0); NEUTROPHILS # (AUTO) 7.8 K/uL (1.8-8.9); NEUTROPHILS % (AUTO) 65.6 % (38.5-71.5); PLATELET COUNT (AUTO) 328 K/uL (179-408); RED BLOOD CELL COUNT(AUTO) 4.12 MIL/uL (3.63-4.92); WHITE BLOOD COUNT (AUTO) 11.9 K/uL (3.8-11.8)
[2017-07-13] MEDS ORDERED: CYCLOBENZAPRINE HCL 10 MG TABLET PO PRN (09:00)
[2017-07-13] MEDS ORDERED: TRAMADOL HCL 50 MG TABLET PO PRN (09:00)
[2017-07-13] MEDS ORDERED: ASPIRIN EC 81 MG TABLET.DR PO SCH (09:00)
[2017-07-13] MEDS ORDERED: CALCIUM CARBONATE 500 MG TABLET PO SCH (09:00)
[2017-07-13] MEDS ORDERED: SULFAMETH/TRIMETH 800/160 MG TABLET PO SCH (09:00)
[2017-07-13] MEDS ORDERED: FLUTICASONE PROP NASAL SPRAY 16 GM BOTTLE NS SCH (09:00)
[2017-07-13] MEDS ORDERED: GABAPENTIN 100 MG CAPSULE PO SCH (09:00)
[2017-07-13] MEDS ORDERED: Medication Not On Formulary EA (Ascorbate Calcium (Vitamin C TAB) 500 MG) PO SCH (09:00)
[2017-07-13] MEDS ORDERED: LACTULOSE 20 G/30 ML LIQUID UDC PO PRN (09:00)
[2017-07-13] MEDS ORDERED: DIPHENOXYLATE HCL/ATROP SULF TABLET PO PRN (09:00)
[2017-07-13] MEDS ORDERED: Medication Not On Formulary EA (Multivitamins (Multivitamin) 1 EACH) PO SCH (09:00)
[2017-07-13] MEDS ORDERED: LOPERAMIDE HCL 2 MG CAPSULE PO PRN (09:00)
[2017-07-13] MEDS ORDERED: Medication Not On Formulary EA (Cholecalciferol (Vitamin D3) (Vitamin D3 TAB) 2,000 UNIT PO SCH (09:00)
[2017-07-13 09:06] LABS: IRON, SERUM 30 ug/dL (50-175)
[2017-07-13 09:22] LABS: ALANINE AMINOTRANSFERASE 25 U/L (14-59); ALKALINE PHOSPHATASE 71 U/L (50-136); ASPARTATE AMINOTRANSFERASE 40 U/L (15-37); BILIRUBIN,TOTAL 0.4 mg/dL (0.2-1.0); CARBON DIOXIDE 26 mmol/L (21-32); CHLORIDE 97 mmol/L (98-107); CREATININE 0.7 mg/dL (0.6-1.3); GLUCOSE 111 mg/dL (74-106); MAGNESIUM 2.1 mg/dL (1.8-2.4); POTASSIUM 3.3 mmol/L (3.5-5.1); TOTAL PROTEIN, SERUM 8.2 g/dL (6.4-8.2); UREA NITROGEN, BLOOD 21 mg/dL (7-18)
[2017-07-13 09:23] LABS: THYROID STIMULATING HORMONE 0.962 mIU/mL (0.358-3.740)
[2017-07-13] MEDS: MULTIVITAMINS,THERAPEUTIC TABLET PO SCH (10:08)
[2017-07-13] MEDS: GABAPENTIN 100 MG CAPSULE PO SCH ×3 (10:08→16:48)
[2017-07-13] MEDS: CALCIUM CARBONATE 500 MG TABLET PO SCH ×2 (10:08→16:48)
[2017-07-13] MEDS: ASCORBIC ACID 500 MG TABLET PO SCH (10:08)
[2017-07-13] MEDS: ASPIRIN EC 81 MG TABLET.DR PO SCH (10:08)
[2017-07-13] MEDS: FLUTICASONE PROP NASAL SPRAY 16 GM BOTTLE NS SCH (10:09)
[2017-07-13] MEDS: CHOLECALCIFEROL 1,000 UNIT TABLET PO SCH (10:09)
--- NOTE | 2017-07-13 14:28 | NUR ---
DC Note: Patient currently resides at [facility] [[address] [place] [address]; ]. LUCIO spoke with Brooke at [facility] who confirmed patient can return when ready. LUCIO will follow up with patient to discuss most appropriate discharge plans. SW will form a safe and proper discharge. Addendum: 07/13/17 at 1434 by HERMILO VALDES Initial DC Plan
--- NOTE | 2017-07-13 14:34 | NUR ---
Firearms Reporting: LUCIO submitted Mental Health Report to [facility]J on 07/13.
[2017-07-13 16:00] VITALS: BP 143/71
[2017-07-13] MEDS: LEVOFLOXACIN 500 MG TABLET PO SCH (18:48)
[2017-07-13] MEDS: DOCUSATE SODIUM 100 MG CAPSULE PO SCH (20:36)
[2017-07-13] MEDS: QUETIAPINE FUMARATE 25 MG TABLET PO SCH (20:36)
[2017-07-13 20:37] VITALS: BP 148/66
[2017-07-13] MEDS ORDERED: DOCUSATE SODIUM 100 MG CAPSULE PO SCH (21:00)
--- NOTE | 2017-07-13 22:00 | NUR ---
received to care, up in earnestine chair, appearing anxious, but pleasant upon approach. compliant with medications and staff direction. PRN flexeril given at 2036 for bilateral leg cramps, which seemed to resolve, by 2129. as of 2199, she remains awake and restless. no distress noted. will continue to monitor closely.
--- NOTE | 2017-07-13 23:07 | NUR ---
remains awake, and restless. PRN ativan was given, at this time.
--- NOTE | 2017-07-14 06:00 | NUR ---
slept well, last night. assisted with am care, and shower. curently up in earnestine chair. no distress noted.
[2017-07-14] MEDS: PANTOPRAZOLE SODIUM 40 MG TABLET.DR PO SCH (06:40)
[2017-07-14 07:30] VITALS: BP 158/69
[2017-07-14] MEDS: ASCORBIC ACID 500 MG TABLET PO SCH (08:43)
[2017-07-14] MEDS: CALCIUM CARBONATE 500 MG TABLET PO SCH ×2 (08:43→17:11)
[2017-07-14] MEDS: MULTIVITAMINS,THERAPEUTIC TABLET PO SCH (08:43)
[2017-07-14] MEDS: ESCITALOPRAM OXALATE 10 MG TABLET PO SCH (08:44)
[2017-07-14] MEDS: GABAPENTIN 100 MG CAPSULE PO SCH ×3 (08:44→17:11)
[2017-07-14] MEDS: ASPIRIN EC 81 MG TABLET.DR PO SCH (08:44)
[2017-07-14] MEDS: CHOLECALCIFEROL 1,000 UNIT TABLET PO SCH (08:44)
[2017-07-14] MEDS: FLUTICASONE PROP NASAL SPRAY 16 GM BOTTLE NS SCH (10:17)
[2017-07-14 15:09] VITALS: BP 159/68
[2017-07-14 15:13] VITALS: BP 159/68
[2017-07-14] MEDS: LEVOFLOXACIN 500 MG TABLET PO SCH (17:11)
[2017-07-14] MEDS: LORAZEPAM 0.5 MG TABLET PO PRN (20:07)
[2017-07-14] MEDS: ACETAMINOPHEN 325 MG TABLET PO PRN (20:44)
[2017-07-14 21:04] VITALS: BP 147/72
[2017-07-14] MEDS: QUETIAPINE FUMARATE 25 MG TABLET PO SCH (21:07)
[2017-07-14] MEDS: DOCUSATE SODIUM 100 MG CAPSULE PO SCH (21:07)
--- NOTE | 2017-07-14 22:00 | NUR ---
received to care, up in earnestine chair, appearing confused, anxious, and agitated. stated "you lied to me. you told me 163" difficult to redirect, or orient to reality. PAIGE mccollum sgiven at 2006, and, by 2099, she wasmuch calmer, took her bedtime medications, and allower staff to take her to the bathroom, then to bed. as of 2199, she remains asleep. no distress noted. will continue to monitor closely.
[2017-07-15] MEDS: HYDROCODONE/APAP 10-325 MG TABLET PO PRN (01:11)
[2017-07-15] MEDS: PANTOPRAZOLE SODIUM 40 MG TABLET.DR PO SCH (06:42)
[2017-07-15] MEDS: FLUTICASONE PROP NASAL SPRAY 16 GM BOTTLE NS SCH (08:00)
[2017-07-15] MEDS: ASPIRIN EC 81 MG TABLET.DR PO SCH (08:00)
[2017-07-15] MEDS: ASCORBIC ACID 500 MG TABLET PO SCH (08:00)
[2017-07-15] MEDS: GABAPENTIN 100 MG CAPSULE PO SCH ×3 (08:00→16:24)
[2017-07-15] MEDS: MULTIVITAMINS,THERAPEUTIC TABLET PO SCH (08:00)
[2017-07-15] MEDS: CHOLECALCIFEROL 1,000 UNIT TABLET PO SCH (08:00)
[2017-07-15] MEDS: ESCITALOPRAM OXALATE 10 MG TABLET PO SCH (08:00)
[2017-07-15] MEDS: CALCIUM CARBONATE 500 MG TABLET PO SCH ×2 (08:00→16:24)
[2017-07-15 08:16] VITALS: BP 177/72
[2017-07-15 09:02] LABS: CARBON DIOXIDE 27 mmol/L (21-32); CHLORIDE 93 mmol/L (98-107); CREATININE 0.7 mg/dL (0.6-1.3); GLUCOSE 144 mg/dL (74-106); POTASSIUM 3.7 mmol/L (3.5-5.1); UREA NITROGEN, BLOOD 7 mg/dL (7-18)
[2017-07-15 15:06] VITALS: BP 144/72
[2017-07-15] MEDS: LEVOFLOXACIN 500 MG TABLET PO SCH (16:24)
[2017-07-15 20:12] VITALS: BP 156/73
[2017-07-15] MEDS: DOCUSATE SODIUM 100 MG CAPSULE PO SCH ×2 (20:35→21:00)
[2017-07-15] MEDS: QUETIAPINE FUMARATE 25 MG TABLET PO SCH ×3 (20:35→21:45)
[2017-07-15] MEDS: ACETAMINOPHEN 325 MG TABLET PO PRN ×2 (20:36→21:45)
--- NOTE | 2017-07-15 23:50 | NUR ---
Pt INITIALLY REFUSED SCHEDULED HS SEROQUEL, COLACE, AND PRN TYLENOL 650mg FOR MILD FEVER DESPITE EDUCATION AND ENCOURAGEMENT PROVIDED. Pt TOOK MEDS CRUSHED FROM SPINNING FRAME CLEANER AT 1055, STILL REFUSED COLACE.
[2017-07-16] MEDS: PANTOPRAZOLE SODIUM 40 MG TABLET.DR PO SCH (06:59)
--- NOTE | 2017-07-16 06:59 | NUR ---
Pt OFFERED SCHEDULED PROTONIX, BUT STATED SHE WOULD NOT TAKE IT, "BECAUSE IT COSTS MONEY, AND YOU'RE NOT GETTING ANY MONEY FROM ME!". Pt THINKS THAT SHE HAS TO PAY FOR CLOTHING, FOOD, MEDICATIONS, SHOWERS, ETC. Pt EDUCATED MULTIPLE TIMES THAT SHE DOES NOT HAVE TO PAY LIZ OUT OF POCKET, BUT SHE IS FIXED IN THIS BELIEF AND REFUSES TO BELIEVE STAFF. Pt KEEPS YELLING THAT RN IN A "LIAR".
[2017-07-16 07:30] VITALS: BP 144/64
[2017-07-16] MEDS: ESCITALOPRAM OXALATE 10 MG TABLET PO SCH (08:31)
[2017-07-16] MEDS: GABAPENTIN 100 MG CAPSULE PO SCH ×4 (08:31→17:38)
[2017-07-16] MEDS: FLUTICASONE PROP NASAL SPRAY 16 GM BOTTLE NS SCH (08:31)
[2017-07-16] MEDS: CHOLECALCIFEROL 1,000 UNIT TABLET PO SCH (08:31)
[2017-07-16] MEDS: CALCIUM CARBONATE 500 MG TABLET PO SCH ×2 (08:34→17:38)
[2017-07-16] MEDS: ASPIRIN EC 81 MG TABLET.DR PO SCH (08:34)
[2017-07-16] MEDS: MULTIVITAMINS,THERAPEUTIC TABLET PO SCH (08:35)
[2017-07-16] MEDS: ASCORBIC ACID 500 MG TABLET PO SCH (08:35)
--- NOTE | 2017-07-16 08:35 | NUR ---
Pt TOOK HALF HER MEDICATIONS AFTER EXTENSIVE PROMPTING, REFUSED THE OTHER HALF STATING SHE DOES NOT WANT TO "PAY FOR THE WHOLE THING".
[2017-07-16] MEDS: LORAZEPAM 0.5 MG TABLET PO PRN (12:52)
--- NOTE | 2017-07-16 13:03 | NUR ---
Pt REMAINS ANXIOUS AND RESTLESS, ATTEMPTED TO GIVE SCHEDULED NEURONTIN 100mg AND ATIVAN 0.5mg CRUSHED IN ICE CREAM. Pt SPIT IT OUT ON THE FLOOR.
[2017-07-16 15:03] VITALS: BP 130/55
[2017-07-16] MEDS: LEVOFLOXACIN 500 MG TABLET PO SCH (17:38)
[2017-07-16 20:00] VITALS: BP 154/57
[2017-07-16] MEDS: QUETIAPINE FUMARATE 25 MG TABLET PO SCH (20:22)
[2017-07-16] MEDS: HYDROCODONE/APAP 10-325 MG TABLET PO PRN (20:23)
[2017-07-16] MEDS: DOCUSATE SODIUM 100 MG CAPSULE PO SCH (20:23)
[2017-07-17] MEDS: PANTOPRAZOLE SODIUM 40 MG TABLET.DR PO SCH (06:42)
[2017-07-17 08:01] LABS: CARBON DIOXIDE 21 mmol/L (21-32); CHLORIDE 96 mmol/L (98-107); CREATININE 0.6 mg/dL (0.6-1.3); GLUCOSE 127 mg/dL (74-106); PHOSPHOROUS 2.9 mg/dL (2.5-4.9); POTASSIUM 3.5 mmol/L (3.5-5.1); UREA NITROGEN, BLOOD 10 mg/dL (7-18)
[2017-07-17 08:04] LABS: BASOPHILS # (AUTO) 0.1 K/uL (0.0-8.0); BASOPHILS % (AUTO) 0.5 % (0.0-2.0); EOSINOPHILS # (AUTO) 0.2 K/uL (0.0-0.7); EOSINOPHILS % (AUTO) 1.4 % (0.0-7.0); HEMATOCRIT 36.8 % (31.2-41.9); LYMPHOCYTES # (AUTO) 2.8 K/uL (20.0-40.0); LYMPHOCYTES % (AUTO) 22.5 % (20.5-51.5); MEAN CORPUSCULAR HEMOGLOBIN 26.6 uug (24.7-32.8); MEAN CORPUSCULAR HGB CONC 33 g/dL (32.3-35.6); MEAN CORPUSCULAR VOLUME 81.7 fL (75.5-95.3); MONOCYTES % (AUTO) 8.3 % (0.0-11.0); NEUTROPHILS # (AUTO) 8.3 K/uL (1.8-8.9); NEUTROPHILS % (AUTO) 67.3 % (38.5-71.5); PLATELET COUNT (AUTO) 312 K/uL (179-408); WHITE BLOOD COUNT (AUTO) 12.4 K/uL (3.8-11.8)
[2017-07-17] MEDS: LORAZEPAM 0.5 MG TABLET PO PRN (08:14)
[2017-07-17 08:30] VITALS: BP 136/65
[2017-07-17] MEDS: MULTIVITAMINS,THERAPEUTIC TABLET PO SCH (08:43)
[2017-07-17] MEDS: CALCIUM CARBONATE 500 MG TABLET PO SCH ×2 (08:43→17:01)
[2017-07-17] MEDS: CHOLECALCIFEROL 1,000 UNIT TABLET PO SCH (08:43)
[2017-07-17] MEDS: ESCITALOPRAM OXALATE 10 MG TABLET PO SCH (08:44)
[2017-07-17] MEDS: GABAPENTIN 100 MG CAPSULE PO SCH ×3 (08:44→17:01)
[2017-07-17] MEDS: ASCORBIC ACID 500 MG TABLET PO SCH (08:44)
[2017-07-17] MEDS: ASPIRIN EC 81 MG TABLET.DR PO SCH (08:44)
[2017-07-17] MEDS: FLUTICASONE PROP NASAL SPRAY 16 GM BOTTLE NS SCH (09:00)
[2017-07-17 16:19] VITALS: BP 163/73
[2017-07-17] MEDS: LEVOFLOXACIN 500 MG TABLET PO SCH (17:00)
[2017-07-17] MEDS: HYDROCODONE/APAP 10-325 MG TABLET PO PRN (17:01)
[2017-07-17] MEDS: DOCUSATE SODIUM 100 MG CAPSULE PO SCH (20:03)
[2017-07-17] MEDS: QUETIAPINE FUMARATE 25 MG TABLET PO SCH (20:03)
[2017-07-17 20:23] VITALS: BP 125/50
[2017-07-18] MEDS: PANTOPRAZOLE SODIUM 40 MG TABLET.DR PO SCH (06:55)
[2017-07-18 07:30] VITALS: BP 132/61
[2017-07-18] MEDS: LORAZEPAM 0.5 MG TABLET PO PRN (08:01)
[2017-07-18] MEDS: CHOLECALCIFEROL 1,000 UNIT TABLET PO SCH (08:43)
[2017-07-18] MEDS: MULTIVITAMINS,THERAPEUTIC TABLET PO SCH (08:43)
[2017-07-18] MEDS: ASPIRIN EC 81 MG TABLET.DR PO SCH (08:43)
[2017-07-18] MEDS: GABAPENTIN 100 MG CAPSULE PO SCH ×3 (08:43→17:18)
[2017-07-18] MEDS: CALCIUM CARBONATE 500 MG TABLET PO SCH ×2 (08:43→17:18)
[2017-07-18] MEDS: ASCORBIC ACID 500 MG TABLET PO SCH (08:43)
[2017-07-18] MEDS ORDERED: ESCITALOPRAM OXALATE 10 MG TABLET PO SCH (09:00)
[2017-07-18] MEDS: FLUTICASONE PROP NASAL SPRAY 16 GM BOTTLE NS SCH (09:00)
--- NOTE | 2017-07-18 15:08 | NUR ---
[facility]PS: Nursing Notes: Thought Disorder: Patient is awake and responding to her name, disoriented, confused, disorganized, poor appetite, resistant with nursing carer, guarded, paranoid behavior, refusing her meals, stated, "No, the numbers are not right...", impaired judgment, speaking Ukrainian and Northern Irish at the same time, gets easily irritable when redirected, compliant with her medications, unable to formulate a plan for self care, continue with treatment plan.
[2017-07-18 15:46] VITALS: BP 142/57
[2017-07-18] MEDS: LEVOFLOXACIN 500 MG TABLET PO SCH (17:18)
[2017-07-18 20:00] VITALS: BP 134/68
[2017-07-18] MEDS: QUETIAPINE FUMARATE 25 MG TABLET PO SCH (21:19)
[2017-07-18] MEDS: DOCUSATE SODIUM 100 MG CAPSULE PO SCH (21:19)
[2017-07-19] MEDS: PANTOPRAZOLE SODIUM 40 MG TABLET.DR PO SCH (06:42)
[2017-07-19 07:30] VITALS: BP 159/71
[2017-07-19] MEDS: CALCIUM CARBONATE 500 MG TABLET PO SCH ×2 (08:37→17:56)
[2017-07-19] MEDS: CHOLECALCIFEROL 1,000 UNIT TABLET PO SCH (08:37)
[2017-07-19] MEDS: ASCORBIC ACID 500 MG TABLET PO SCH (08:37)
[2017-07-19] MEDS: MULTIVITAMINS,THERAPEUTIC TABLET PO SCH (08:37)
[2017-07-19] MEDS: GABAPENTIN 100 MG CAPSULE PO SCH ×3 (08:37→17:56)
[2017-07-19] MEDS: ASPIRIN EC 81 MG TABLET.DR PO SCH (08:37)
[2017-07-19] MEDS: ESCITALOPRAM OXALATE 10 MG TABLET PO SCH (09:51)
[2017-07-19] MEDS: FLUTICASONE PROP NASAL SPRAY 16 GM BOTTLE NS SCH (09:51)
[2017-07-19 17:12] VITALS: BP 144/83
[2017-07-19 19:56] VITALS: BP 130/61
[2017-07-19] MEDS: DOCUSATE SODIUM 100 MG CAPSULE PO SCH (21:53)
[2017-07-19] MEDS: QUETIAPINE FUMARATE 25 MG TABLET PO SCH (21:53)
--- NOTE | 2017-07-19 22:00 | NUR ---
RECEIVED PATIENT SITTING IN A TIM CHAIR IN THE HALLWAY CLOSED TO THE NURSE STATION. SHE WAS NOTED A/O X 1. SHE WAS ABLE TO COMPLY WITH [facility] MEDICATION REGIMENT. SHE WAS NOTED WITH DEPRESSED MOOD, BLUNTED AFFECT. FLIGHT OF IDEAS, DELUSIONAL. SHE STATED, "I AM GOING TO BE HERE FOREVER." WHEN ASKED IF SHE WANTED TO GO TO HER BED, SHE STATED, "NO, I AM GOING TO STAY HERE, IF I GO TO BED I AM GOING TO , YOU DON'T WANT ME TO , SO I AM GOING TO STAY HERE FOREVER." POOR INSIGHT NOTED. SAFETY WAS EMPHASIS. WILL CONTINUE TO MONITOR.
[2017-07-20] MEDS: LORAZEPAM 0.5 MG TABLET PO PRN (03:03)
--- NOTE | 2017-07-20 03:05 | NUR ---
PATIENT WAS NOTED MILDLY AGITATIVE. NOTED OF IDEAS, SHE SAID, '"NO, I DO NOT WANT TO GO ANYWHERE, I AM GOING TO STAY HERE FOR THE REST OF MY LIFE," Addendum: 07/20/17 at 0340 by SERENITY BARRETT RN ATIVAN 0.5MG PO PRN WAS GIVEN FOR AGITATION. WILL CONTINUE TO MONITOR.
[2017-07-20] MEDS: PANTOPRAZOLE SODIUM 40 MG TABLET.DR PO SCH (06:13)
--- NOTE | 2017-07-20 07:29 | NUR ---
PT SLEPT FOR APPROX 6.00 THROUGH THE NIGHT. SHE WAS COMPLIANT WITH AM MEDICATION AND MORNING SHOWER. SHE CONTINUE CONFUSED WITH FLIGHT OF IDEAS; HOWEVER, NO AGGRESSIVE/COMBATIVE BX WAS NOTED DURING THE SHIFT.
[2017-07-20 08:00] VITALS: BP 144/76
[2017-07-20 08:24] LABS: BASOPHILS # (AUTO) 0.1 K/uL (0.0-8.0); BASOPHILS % (AUTO) 0.6 % (0.0-2.0); EOSINOPHILS # (AUTO) 0.2 K/uL (0.0-0.7); EOSINOPHILS % (AUTO) 1.4 % (0.0-7.0); HEMATOCRIT 40.8 % (31.2-41.9); LYMPHOCYTES # (AUTO) 2.8 K/uL (20.0-40.0); LYMPHOCYTES % (AUTO) 20.8 % (20.5-51.5); MEAN CORPUSCULAR HEMOGLOBIN 26.4 uug (24.7-32.8); MEAN CORPUSCULAR HGB CONC 32 g/dL (32.3-35.6); MONOCYTES # (AUTO) 0.9 K/uL (2.0-10.0); MONOCYTES % (AUTO) 6.8 % (0.0-11.0); NEUTROPHILS # (AUTO) 9.5 K/uL (1.8-8.9); NEUTROPHILS % (AUTO) 70.4 % (38.5-71.5); PLATELET COUNT (AUTO) 352 K/uL (179-408); RED BLOOD CELL COUNT(AUTO) 4.92 MIL/uL (3.63-4.92); WHITE BLOOD COUNT (AUTO) 13.5 K/uL (3.8-11.8)
[2017-07-20 08:56] LABS: ALANINE AMINOTRANSFERASE 51 U/L (14-59); ALKALINE PHOSPHATASE 82 U/L (50-136); ASPARTATE AMINOTRANSFERASE 28 U/L (15-37); BILIRUBIN,TOTAL 0.5 mg/dL (0.2-1.0); CARBON DIOXIDE 26 mmol/L (21-32); CHLORIDE 96 mmol/L (98-107); CREATININE 0.8 mg/dL (0.6-1.3); GLUCOSE 137 mg/dL (74-106); MAGNESIUM 2.2 mg/dL (1.8-2.4); PHOSPHOROUS 3.1 mg/dL (2.5-4.9); TOTAL PROTEIN, SERUM 8.1 g/dL (6.4-8.2); UREA NITROGEN, BLOOD 21 mg/dL (7-18)
[2017-07-20] MEDS: GABAPENTIN 100 MG CAPSULE PO SCH ×3 (09:14→16:23)
[2017-07-20] MEDS: ASPIRIN EC 81 MG TABLET.DR PO SCH (09:14)
[2017-07-20] MEDS: ASCORBIC ACID 500 MG TABLET PO SCH (09:14)
[2017-07-20] MEDS: MULTIVITAMINS,THERAPEUTIC TABLET PO SCH (09:14)
[2017-07-20] MEDS: CALCIUM CARBONATE 500 MG TABLET PO SCH ×2 (09:14→16:23)
[2017-07-20] MEDS: ESCITALOPRAM OXALATE 10 MG TABLET PO SCH (09:14)
[2017-07-20] MEDS: FLUTICASONE PROP NASAL SPRAY 16 GM BOTTLE NS SCH (09:15)
[2017-07-20] MEDS: CHOLECALCIFEROL 1,000 UNIT TABLET PO SCH (09:15)
--- NOTE | 2017-07-20 10:48 | NUR ---
Discharge Note: Patient will be discharged to [facility] [[address] [place] [address]; ] via ambulance. Spoke with Angeli at the facility who states they are ready to accept the patient today. Spoke with patient's daughter, Elizabeth ([phone]) who is aware and agreeable with discharge plans. Patient is aware and agreeable with discharge plans. Patient will follow-up at the facility with Dr. Kendall (Learning And Development Manager) and Dr. Castanon (Psychiatrist).
[2017-07-20 15:35] VITALS: BP 123/67
--- NOTE | 2017-07-20 16:35 | NUR ---
1400 Called [facility] , [facility] - spoke to Otoniel Billings RN report given regarding patient that will be discharged today. nursing staff development coordinator informed about patient mental and medical diagnosis, medication to continue upon hospital discharged- staff verbalized understanding.1630 Patient discharged to [facility] , [facility] alert and ox1, denies SI/HI. No hallucination/ no delusion noted via ambulance.
== END 2017-07-20 16:30 | DRG 885 ==
LOC: ER 14:27 → GPS 19:54
PROVIDERS: ADMIT Psychiatry & Neurology Psychiatry; ATTEND Internal Medicine
DX: F32.3 Major depressive disorder, single episode, severe with psychotic features (principal); F03.91 Unspecified dementia, unspecified severity, with behavioral disturbance; E87.1 Hypo-osmolality and hyponatremia; G62.9 Polyneuropathy, unspecified; F22 Delusional disorders; N39.0 Urinary tract infection, site not specified; F19.959 Other psychoactive substance use, unspecified with psychoactive substance-induced psychotic disorder, unspecified; K58.2 Mixed irritable bowel syndrome; Z90.710 Acquired absence of both cervix and uterus; Z90.49 Acquired absence of other specified parts of digestive tract; Z86.010 Personal history of colon polyps; Z79.82 Long term (current) use of aspirin; Z79.899 Other long term (current) drug therapy; F41.9 Anxiety disorder, unspecified; Z91.83 Wandering in diseases classified elsewhere; Z91.14 Patient's other noncompliance with medication regimen; G89.29 Other chronic pain; M54.5 Low back pain; I10 Essential (primary) hypertension
CPT/HCPCS: 36415; 71045; 80307; 83550; 83735; 84100; 84443; 85025; 85730; 93005; 97116; A4663; G0480; G0480-TC; J3535

== ENCOUNTER 2021-06-20 03:42 | Emergency (ER) | payer MEDICARE, OTHER ==
[~2021-06-20] VITALS: Ht 167.6 cm; Wt 49.9 kg
[~2021-06-20 03:42] MED LIST changes: +ACET-3315 PO; -ANTACID PO; +ASCO-340 PO; -ATROPINE PO; -CA CARBONATE PO; +CALC500T88 PO; -CHOL200025 PO; +CHOL200026 PO; +CYCL5TAB PO; +DIPH1TAB PO; -DIPHENOXYLATE PO; +DOCU-106 PO; -ESCI5TAB PO; -FERR325T28 PO; +FLUT16SP NS; -HYDR-3326 PO; +HYDR-3980 PO; -HYDR-548 PO; +LACT10SO3 PO; -LACTULOSE PO; -LEVO500T2 PO; +LOPE2CAP PO; -LOPE2TAB25 PO; -LORA1TAB PO; +MAG30ORA PO; -MAPAP PO; -METR500P3 IV; +MULT-594 PO; -MULT1TAB73 PO; -OMEP20CA10 PO; +OMEP40CA21 PO; -QUET25TA PO; -TEMA30CA5 PO; -TRAZ-144 PO; -[UNRECOGNIZED DRUG - CODE] PO
[2021-06-20] MEDS ORDERED: TDAP DIPH,PERTUSS,TET VAC/PF 0.5 ML DISP.SYRIN IM ONE ×2 (04:00→04:43)
[2021-06-20] MEDS ORDERED: SODIUM BICARBONATE 4.2 % (NEUT) 5 ML VIAL TP ONE (04:00)
[2021-06-20] MEDS ORDERED: LIDOCAINE 1%-EPI 1:100,000 20 ML VIAL IJ ONE (04:00)
--- NOTE | 2021-06-20 04:02 | NUR ---
BIB RA for fall sustained at her facility ([facility]) - Pt fell off her bed and hit her head. On baby Aspirin. 2 inch Laceration noted on posterior portion of scalp. Denies CP, sob, diaphoresis.
--- NOTE | 2021-06-20 04:11 | NUR ---
Pt resting in bed. NAD noted. Hemodynmacially stable. Needs attended to.
--- NOTE | 2021-06-20 04:41 | NUR ---
Pt back from CT
--- NOTE | 2021-06-20 06:27 | NUR ---
Pts daughter (Elizabeth) will be picking patient up from hospital - MD Whyte made aware
--- NOTE | 2021-06-20 07:20 | NUR ---
Daughter arrived. Pt was A&Ox4, signed her D/C information. Patient discharged to home in stable condition. Written and verbal after care instructions given. Patient verbalizes understanding of instructions. Stressed follow up or return to ER for worsening s/s.
[2021-06-20 07:41] VITALS: BP 125/92
== END 2021-06-20 07:30 ==
LOC: ER 03:42
DX: S01.01XA Laceration without foreign body of scalp, initial encounter (principal); W06.XXXA Fall from bed, initial encounter; Y92.122 Bedroom in nursing home as the place of occurrence of the external cause; F03.90 Unspecified dementia, unspecified severity, without behavioral disturbance, psychotic disturbance, mood disturbance, and anxiety; Z90.710 Acquired absence of both cervix and uterus
CPT/HCPCS: 12002; 70450; 90471; 90715; 99284; J3490; A4663